=== PATIENT | male | born 1955 | race Caucasian/White ===

== ENCOUNTER 2021-08-18 22:54 | Inpatient (IN) | payer MEDICARE, OTHER ==
[~2021-08-18] VITALS: Ht 185.4 cm; Wt 108.9 kg
[2021-08-19] MEDS ORDERED: LAMO25TA10 PO (00:01)
[2021-08-19] MEDS ORDERED: LAMO200T2 PO (00:01)
[2021-08-19] MEDS ORDERED: OLAN2.5T3 PO (00:01)
[2021-08-19] MEDS ORDERED: ARIP10TA9 PO (00:01)
[2021-08-19] MEDS ORDERED: QUET25TA PO (00:01)
--- NOTE | 2021-08-19 02:57 | NUR ---
LAB AT BEDSIDE.
[2021-08-19 03:43] LABS: *BILIRUBIN,URIN NEGATIVE (NEGATIVE); *CLARITY,URINE CLEAR (CLEAR); *COLOR,URINE YELLOW (YELLOW); *KETONES,URINE NEGATIVE (NEGATIVE); *UROBILINOGEN,URINE 0.2 E.U./dl (NORMAL); LEUKOCYTE ESTERASE ,URINE NEGATIVE (NEGATIVE); NITRITE, URINE NEGATIVE (NEGATIVE); PH,URINE 5.5 (5.0-8.0); UGLUCOSE NEGATIVE (NEGATIVE)
--- NOTE | 2021-08-19 03:47 | NUR ---
PROVIDED PT WITH MEAL TRAY, WELL TOLERATED.
[2021-08-19 03:48] LABS: *BLOOD, URINE TRACE (NEGATIVE); BACTERIA,URINE NONE SEEN /HPF (NONE SEEN); RBC,URINE 0-3 /HPF (0-3); SQUAMOUS EPITHELIAL CELL,UR NONE SEEN /HPF (NONE SEEN); WBC,URINE NONE SEEN /HPF (0-3)
[2021-08-19 03:55] LABS: CARBON DIOXIDE 29 mmol/L (21-32); CHLORIDE 104 mmol/L (98-107); CREATININE 0.9 mg/dL (0.6-1.3); GLUCOSE 134 mg/dL (74-106); MEAN CORPUSCULAR HEMOGLOBIN 27.9 uug (23.8-33.4); MEAN CORPUSCULAR VOLUME 82.5 fL (73.0-96.2); PLATELET COUNT (AUTO) 315 K/uL (152-348); POTASSIUM 3.7 mmol/L (3.5-5.1); UREA NITROGEN, BLOOD 15 mg/dL (7-18)
[2021-08-19 04:03] LABS: *AMPHETAMINE, URINE NEGATIVE (NEGATIVE); *CANNABINOID, URINE NEGATIVE (NEGATIVE); *COCCAINE, URINE NEGATIVE (NEGATIVE); *OPIATE, URINE NEGATIVE (NEGATIVE); *PHENCYCLIDINE SCREEN,URINE NEGATIVE (NEGATIVE)
[2021-08-19 04:03] LABS: ETHANOL < 3 MG/DL (0-0)
[2021-08-19 04:09] LABS: ALANINE AMINOTRANSFERASE 32 U/L (16-63); ALKALINE PHOSPHATASE 81 U/L (50-136); ASPARTATE AMINOTRANSFERASE 20 U/L (15-37); BILIRUBIN,DIRECT 0.1 mg/dL (0.0-0.2); BILIRUBIN,TOTAL 0.4 mg/dL (0.2-1.0); CREATINE KINASE, TOTAL 151 U/L (39-308); TOTAL PROTEIN, SERUM 7.4 g/dL (6.4-8.2)
[2021-08-19 04:13] LABS: ACETAMINOPHEN < 2.0 ug/mL (10-30)
[2021-08-19] MEDS ORDERED: LORAZEPAM 1 MG TABLET ONE (07:09)
[2021-08-19] MEDS ORDERED: LORAZEPAM 0.5 MG TABLET PO ONE (07:15)
--- NOTE | 2021-08-19 07:15 | NUR ---
Received thorough report from staff PMRN Alyssa using sbar method. All questions answered, nothing pending on pt. Pt is medically cleared for crisis rep eval. Pt is aaox4, completely independent, walking and talking, otherwise appears completely healthy with no major med issues. Pt recently placed on hold for being in manic phase. Pt dced from facility and hold , hence EDMD ordered Pet eval. Pt waiting patiently for crisis rep. Will be calling on-call crisis rep at 0800, for Pt evaluation and poss hold/placement/admission. VSS, PE WNL, NAD, PERRLA, No s/sxof distress present.
--- NOTE | 2021-08-19 07:53 | NUR ---
/Pt asked for his razor Addendum: 08/19/21 at 0759 by [email or web address] Pt asked for razor because he wants to shave his face, states that he has to go to work to day and that he has stuff to do today. Pt was given his belongings and he fetched his bic disposable razor and proceeded to shave his face in the bathroom, pt was under observation the entire time.
--- NOTE | 2021-08-19 08:13 | NUR ---
Pt just given reg breakfast tray. Pt asking for coffee, told that there isnt any in dept. But I will see if I can procure some.
--- NOTE | 2021-08-19 08:22 | NUR ---
Crisis rep called, Gracie material handler floorperson, answered right away and asked a few questions like reason for eval, and date of last hold, then said she'll be here in approx one hour.
--- NOTE | 2021-08-19 08:24 | NUR ---
Pt in bathroom performing ADLs and getting ready to operate his day. said the breakfast was not good and that ist going to make him sick and that he has colon ca.
--- NOTE | 2021-08-19 09:57 | NUR ---
Social Work consult requested for a patient in the emergency room on 5150 DTS and DTO expiring at 1407 today from [facility]. Patient is a 66-year-old male admitted to the emergency room from [facility]. Upon social media project manager assessment, patient is alert and oriented X4. Patient presents with euthymic mood and full range of affect. Patient presents with coherent, and goal directed thought process. SW explored patients social support. Patient states that his primary manager contact is Alberto Gayle ([phone]) who is his alcoholic anonymous sponsor, and they have a good relationship. SW explored patients living situation. Patient states that he lives in an apartment on [address], [place] [address]). Patient states he has a roommate, Alfredo Orellana ([phone]) and they have a good relationship. SW explored patients financial status. 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 Patient states that he is ambulatory and does require the use of DMEs. SW explore patients history of substance abuse. 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 Patient denies use of other substances. The drug screen was negative. SW explored history of psychiatric diagnosis. Patient states that he has schizophrenia and takes 10 mg of Abilify. Patient denied suicidal or homicidal ideations. Patient states that he is open to being placed at [facility] to stabilize his mood. He was placed on a 5150 by [facility] on 08/15/21 at 1407 after he told the officer I will kill you and kill myself. Pt was reportedly delusional and this is reflected in records from [facility]. Pt will be admitted to [facility] under the care of Dr Newman and will sign in voluntarily.
--- NOTE | 2021-08-19 10:20 | NUR ---
Pt tranported to MHU via wc without difficulty or incident, accompanied by me. All belongings accounted for. belongings list completed and signed. Pt denies any pain, sob, n/v, dizziness or discomfort. VSS, PE WNL, NAD, good distal pulses x4ext, lungs ctab. Pt SR without ectopy, RRR, normal s1s2. No s/sxof distress present. ASSISTANT COACH at bedside for pt intake.
--- NOTE | 2021-08-19 10:25 | NUR ---
GPS: PT ADMITTED TO MHU, RECEIVED A REPORT FROM SARI ED RN. PT ALERT/ORIENTED X4. PER REPORT, PT CAME IN BY PRIVATE AMBULANCE TRANSPORTATION FROM [facility] OF [facility] ON 5150 HOLD BUT IT BEFORE ADMISSION TO THE UNIT AND PT WILLINGLY SIGNED FOR VOLUNTARY HOLD. PT WAS ANXIOUS AND WAS GIVEN AN ATIVAN 2MG PO AT ED AT 0700. PT RECEIVED COOPERATIVE WITH CARE AND STAFF. DENIES ANY PAIN OR DISCOMFORT, PT AMBULATORY, LIKES WALKING AROUND AND ALSO LIKE READING BOOKS. 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 PT SEEN HAVING CONVERSATION WITH OTHER PT. NO ANXIETY NOTED AT THIS TIME.
[2021-08-19 10:29] VITALS: BP 162/93
[2021-08-19] MEDS ORDERED: ZOLPIDEM 5 MG TABLET PO PRN (10:30)
[2021-08-19] MEDS ORDERED: MAG HYDROX/AL HYDROX/SIMETH 30 ML LIQUID UDC PO PRN (10:30)
[2021-08-19] MEDS ORDERED: LORAZEPAM 1 MG TABLET PO PRN (10:30)
[2021-08-19] MEDS ORDERED: ACETAMINOPHEN 325 MG TABLET PO PRN (10:30)
[2021-08-19] MEDS ORDERED: MAGNESIUM HYDROXIDE 30 ML LIQUID UDC PO PRN (10:30)
--- NOTE | 2021-08-19 10:50 | NUR ---
Pt refused EKG at this time.. RN is aware.
[2021-08-19] MEDS ORDERED: BLOOD SUGAR DIAGNOSTIC 1 EACH STRIP VI ONE (11:00)
[2021-08-19 11:27] VITALS: BP 138/82
--- NOTE | 2021-08-19 12:30 | NUR ---
GPS: PT WAS SEEN BY PSYCHIATRIST TODAY. PT IS ADMITTED THROUGH THE SERVICE OF DR HERNANDEZ (PSYCHIATRIST) AND DR SHARA GUNTER (MUSIC VIDEO DIRECTOR).
--- NOTE | 2021-08-19 15:05 | NUR ---
GPS: PT CAME TO NURSES STATION AND REQUESTED TO LEAVE AGAINST MEDICAL ADVICE. PT ALERT/ORIENTED X4. O AGITATION NOTED. COOPERATIVE WITH STAFF AND COMPLIANT WITH CARE. CALLED PSYCHIATRIST AND DIRECTOR OF BEHAVIORAL UNIT AND APPROVED AMA. ALL BELONGINGS GIVEN AND ACCOUNTED FOR. PT WHEELED VIA WHEELCHAIR. PT STATED "I HAVE MY OWN MONEY $20 FOR MY TRANSPORTATION".
[2021-08-19] MEDS ORDERED: LAMOTRIGINE 100 MG TABLET PO SCH (17:00)
[2021-08-19] MEDS ORDERED: ARIPIPRAZOLE 10 MG TABLET PO SCH (21:00)
== END 2021-08-19 15:20 | disposition left against medical advice (07) | DRG 885 ==
LOC: ER 22:58 → GPS 08-19 10:02
PROVIDERS: ADMIT Psychiatry & Neurology Psychiatry; ATTEND Psychiatry & Neurology Psychiatry
DX: F25.0 Schizoaffective disorder, bipolar type (principal); Z79.899 Other long term (current) drug therapy; Z20.822 Contact with and (suspected) exposure to COVID-19; Z88.0 Allergy status to penicillin
CPT/HCPCS: 36415; 85025; G0480